=== PATIENT | male | born 2000 | race Caucasian/White ===

== ENCOUNTER 2024-07-12 14:57 | Outpatient (REF) | payer BC, SELFPAY ==
--- NOTE | 2024-07-12 15:40 | PFT_ITS ---
Flows: FEV1: 112 % of predicted at 5.59 L FVC: 108 % of predicted at 6.43 L FEV1/FVC: 87 % Bronchodilator response: Absent Volumes: Total lung capacity: 112 % of predicted at 8.28 L Residual volume: 113 % of predicted at 1.76 L Slow vital capacity: 114 % of predicted at 6.53 L Expiratory reserve volume: 106 % of predicted at 2.09 L Diffusion capacity: Normal Impression: No obstructive or restrictive ventilatory defect. No bronchodilator response. Normal pulmonary function test. MTDD
--- OUTSIDE RECORDS SUMMARY | 2024-07-17 10:46 | XMS_ITS | Continuity of Care Document ---
Author Organization [facility] Address [address] [place] [id number] Phone [phone] Care Team Providers Care Design Transferrer Name Role Phone Self Referral Care Team Information Freight Agent U navailable Allergies and adverse reactions Description No Known Drug Allergies Medications Active Medications SIG Qnty Indications Ordering Provider Date [id number] Tablets 2 tabs by mouth three times a day as directed 84tabs N49.2 Onur Stout MD 01/07/2022 History Medications No Active Medications Unknown 01/07/2022 - 01/07/2022 Vital Signs Date Vital Result Comment 01/07/2022 3:22pm Height 72 inches 6'0 Weight 198.00 lb Weight 89.813 kg BMI (Body Mass Index) 26.9 kg/m2 BP Systolic 132 mmHg BP Diastolic 74 mmHg
== END 2024-07-12 14:58 | disposition home or self-care (01) ==
LOC: HO.RESP 14:57
PROVIDERS: Visit Provider Student in an Organized Health Care Education/Training Program
DX: R06.00 Dyspnea, unspecified (principal)
CPT/HCPCS: 94010; 94640; 94727; 94729

== ENCOUNTER → 2024-07-12 15:40 | Outpatient (BNV) | payer BC, SELFPAY | PROVIDERS: Visit Provider Internal Medicine Pulmonary Disease | DX: R06.09 Other forms of dyspnea (principal) | CPT/HCPCS: 94060; 94727; 94729 ==